=== PATIENT | female | born 2000 | race Caucasian/White ===

== ENCOUNTER 2025-02-21 08:22 | Emergency (ER) | payer BC ==
[2025-02-21] MEDS: diphenhydrAMINE 50 MG/ML SDV IVPUSH ONE (09:20)
== END 2025-02-21 09:54 | disposition home or self-care (01) ==
LOC: JP.ED 08:22
DX: G43.909 Migraine, unspecified, not intractable, without status migrainosus (principal); Z79.899 Other long term (current) drug therapy; Z88.8 Allergy status to other drugs, medicaments and biological substances; Z88.1 Allergy status to other antibiotic agents
CPT/HCPCS: 96372; 96374; 99283; J1200; J1790